=== PATIENT | male | born 1955 | race Caucasian/White ===

== ENCOUNTER → 2016-06-29 | Outpatient (CLI) | payer BC ==
--- NOTE | 2016-06-29 15:56 | XCELERA REPORT ---
[address] [address] Lower Extremity Venous Evaluation Name: TOÑA SLOAN Age: 61 yrs Gender: Male : 1955 Patient Status: Outpatient Patient Location: Study Date: 06/29/2016 02:29 PM Procedure: Color flow and duplex imaging of the veins of the right lower extremity as well as the left Common Femoral vein. Reason For Study: RLE PAIN, SWELLING Ordering Physician: DAVON RICHARDSON Performed By: Bonita Rhodes Right Sided Venous Evaluation Normal vessel filling wall to wall, compression and augmentation as well as Colour flow down to the infrageniculate veins. Left Sided Venous Evaluation The left common femoral vein is fully compressible. Spontaneous and phasic flow is present in the left common femoral vein. Critical Findings Called in to Dr Richardson's office at 1600. Interpretation Summary No duplex evidence of DVT or obstruction in the right lower extremity nor in the left Common Femoral vein. : DAVON RICHARDSON > Ronald Arango
== END ==
LOC: SP 14:26
PROVIDERS: ATTEND Family Medicine
DX: I82.401 Acute embolism and thrombosis of unspecified deep veins of right lower extremity (principal)
CPT/HCPCS: 93971